=== PATIENT | male | born 1990 | race African-American/Black ===

== ENCOUNTER 2020-12-01 19:09 | Emergency (ER) | payer SELFPAY ==
[~2020-12-01] VITALS: Ht 188 cm; Wt 74.8 kg
[2020-12-01 19:09] VITALS: BP 122/90
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
--- NOTE | 2020-12-01 19:30 | NUR ---
AMBULATED TO WITH STEADT GAIT, RETURNED TO BED.
--- NOTE | 2020-12-01 19:45 | NUR ---
DR CARRANZA AT BEDSIDE FOR EXAM
--- NOTE | 2020-12-01 20:10 | NUR ---
PORTABLE X-RAY DONE
--- NOTE | 2020-12-01 21:20 | NUR ---
Patient discharged with v/s stable. Written and verbal after care instructions given and explained. Patient verbalized understanding. Ambulatory with steady gait. All questions addressed prior to discharge. Advised to follow up with PMD.
== END 2020-12-01 21:20 | disposition home or self-care (01) ==
LOC: MED 19:09
DX: M25.562 Pain in left knee (principal); Y04.8XXA Assault by other bodily force, initial encounter; Y93.89 Activity, other specified; Y92.89 Other specified places as the place of occurrence of the external cause; Y99.8 Other external cause status
CPT/HCPCS: 73562; 99283